=== PATIENT | female | born 1985 | race African-American/Black ===

== ENCOUNTER 2018-09-20 13:11 | Emergency (ER) | payer BC, MEDICAID ==
[~2018-09-20] VITALS: Ht 165.1 cm; Wt 59.0 kg
[2018-09-20 20:30] VITALS: BP 118/79
== END 2018-09-20 21:30 | disposition home or self-care (01) ==
LOC: ER 13:11
DX: G93.40 Encephalopathy, unspecified (principal); F31.9 Bipolar disorder, unspecified
CPT/HCPCS: 99283